=== PATIENT | female | born 1955 | race Caucasian/White ===

== ENCOUNTER 2018-04-07 19:57 | Emergency (ER) | payer MEDICAID, OTHER | END 2018-04-07 21:24 | disposition home or self-care (01) | LOC: FTE 19:57 | DX: B02.9 Zoster without complications (principal) | CPT/HCPCS: 99284; Z7502 ==

== ENCOUNTER 2018-04-09 17:47 | Inpatient (IN) | payer MEDICAID ==
[2018-04-09] MEDS: SODIUM CHLORIDE 0.9% 1L BAG IV* (18:54)
[2018-04-09 19:02] LABS: ADD MAN DIFF? NO
[2018-04-09 19:05] LABS: WHITE BLOOD COUNT 6.8 10^3/ul (4.8-10.8)
[2018-04-09 19:05] LABS: BASOPHILS % 0.4 % (0.0-2.0); EOSINOPHILS # 0.1 10^3/ul (0.0-0.5); HEMOGLOBIN 14.7 g/dl (12.0-16.0); LYMPHOCYTES # 1.2 10^3/ul (0.8-2.9); LYMPHOCYTES % 17.1 % (15.0-51.0); MEAN CORPUSCULAR HEMOGLOBIN 31.1 pg (29.0-33.0); MEAN CORPUSCULAR HGB CONC 33.4 g/dl (32.0-37.0); MEAN PLATELET VOLUME 11.1 fl (7.4-10.4); MONOCYTE # 0.5 10^3/ul (0.3-0.9); MONOCYTES % 7.9 % (0.0-11.0); NEUTROPHILS % 73.3 % (39.0-77.0); PLATELET COUNT 201 10^3/UL (140-415); RED BLOOD COUNT 4.73 10^6/ul (4.20-5.40); RED CELL DISTRIBUTION WIDTH 12.4 % (11.5-14.5)
[2018-04-09 19:24] LABS: INR 0.95; PROTIME 12.8 Sec (11.9-14.9)
[2018-04-09 19:25] LABS: PARTIAL THROMBOPLASTIN TIME 25.6 Sec (25.0-35.0)
[2018-04-09 19:26] LABS: ALANINE AMINOTRANSFERASE 31 IU/L (13-69); ALBUMIN 4.7 g/dl (3.3-4.9); ALBUMIN/GLOBULIN RATIO 1.23; ALKALINE PHOSPHATASE 71 IU/L (42-121); ANION GAP 14 (8-16); ASPARTATE AMINO TRANSFERASE 23 IU/L (15-46); BLOOD UREA NITROGEN 13 mg/dl (7-20); CALCIUM 9.1 mg/dl (8.4-10.2); CARBON DIOXIDE 29 mmol/L (21-31); CHLORIDE 102 mmol/L (97-110); CREATININE 0.63 mg/dl (0.44-1.00); GLUCOSE 109 mg/dl (70-220); SODIUM 141 mmol/L (135-144); TOTAL PROTEIN 8.5 g/dl (6.1-8.1)
[2018-04-09 19:28] LABS: LACTIC ACID 1.4 mmol/L (0.5-2.0)
[2018-04-09 19:32] LABS: ETHANOL < 10.0 mg/dl
[2018-04-09 19:43] LABS: TROPONIN-I < 0.010 ng/ml (0.000-0.120)
[2018-04-09 21:15] LABS: ADD UMIC YES; UR ASCORBIC ACID NEGATIVE (NEGATIVE); UR BACTERIA FEW /HPF (NONE SEEN); UR BILIRUBIN (Dip) NEGATIVE (NEGATIVE); UR BLOOD (Dip) NEGATIVE (NEGATIVE); UR CLARITY CLEAR (CLEAR); UR COLOR YELLOW (YELLOW); UR GLUCOSE (Dip) NEGATIVE (NEGATIVE); UR KETONES (Dip) 1+ mg/dL (NEGATIVE); UR LEUKOCYTE ESTERASE (Dip) 3+ Leu/ul (NEGATIVE); UR NITRITE (Dip) NEGATIVE (NEGATIVE); UR RBC 3 /HPF (0-5); UR SPECIFIC GRAVITY (Dip) 1.009 (1.003-1.030); UR SQUAMOUS EPITHELIAL CELL FEW /HPF (FEW); UR TOTAL PROTEIN (Dip) NEGATIVE (NEGATIVE); UR UROBILINOGEN (Dip) NEGATIVE (NEGATIVE); UR WBC 12 /HPF (0-5)
[2018-04-09 21:31] LABS: LACTIC ACID 1.4 mmol/L (0.5-2.0)
[2018-04-09] MEDS ORDERED: ONDANSETRON 4 MG INJ IV (22:00)
[2018-04-09] MEDS: CEFTRIAXONE 1 GM/50 ML (PMX) 50 ML IVPB (22:02)
[2018-04-09] MEDS: ACETAMINOPHEN 325 MG TAB PO (22:05)
[2018-04-09 22:32] LABS: AMPHETAMINE/METHAMPHETAMINE NEGATIVE (NEGATIVE); BARBITURATES NEGATIVE (NEGATIVE); BENZODIAZEPINES NEGATIVE (NEGATIVE); CANNABINOIDS NEGATIVE (NEGATIVE); COCAINE NEGATIVE (NEGATIVE); OPIATES NEGATIVE (NEGATIVE)
[2018-04-09 23:10] LABS: LACTIC ACID 0.9 mmol/L (0.5-2.0)
[2018-04-10] MEDS ORDERED: DOCUSATE SODIUM 100 MG CAP PO
[2018-04-10] MEDS ORDERED: BISACODYL (EC) 5 MG TAB PO
[2018-04-10] MEDS ORDERED: NACL 0.9% 3 ML SYG IV
[2018-04-10] MEDS: SOD CHLORIDE 0.9% 1,000 ML IV (00:05)
[2018-04-10] MEDS: VALACYCLOVIR 500 MG TAB PO ×2 (05:00→08:50)
[2018-04-10 06:04] LABS: ADD MAN DIFF? NO
[2018-04-10 06:06] LABS: WHITE BLOOD COUNT 6.1 10^3/ul (4.8-10.8)
[2018-04-10 06:06] LABS: BASOPHILS % 0.3 % (0.0-2.0); EOSINOPHILS # 0.2 10^3/ul (0.0-0.5); EOSINOPHILS % 3.7 % (0.0-7.0); HEMOGLOBIN 13.2 g/dl (12.0-16.0); LYMPHOCYTES # 1.6 10^3/ul (0.8-2.9); LYMPHOCYTES % 26.4 % (15.0-51.0); MEAN CORPUSCULAR HEMOGLOBIN 31.7 pg (29.0-33.0); MEAN CORPUSCULAR HGB CONC 33.8 g/dl (32.0-37.0); MEAN CORPUSCULAR VOLUME 93.5 fl (82.0-101.0); MEAN PLATELET VOLUME 11.4 fl (7.4-10.4); MONOCYTE # 0.6 10^3/ul (0.3-0.9); MONOCYTES % 10.1 % (0.0-11.0); NEUTROPHIL # 3.6 10^3/ul (1.6-7.5); NEUTROPHILS % 59.2 % (39.0-77.0); PLATELET COUNT 173 10^3/UL (140-415); RED BLOOD COUNT 4.17 10^6/ul (4.20-5.40); RED CELL DISTRIBUTION WIDTH 12.4 % (11.5-14.5)
[2018-04-10 06:25] LABS: ALANINE AMINOTRANSFERASE 27 IU/L (13-69); ALBUMIN 3.6 g/dl (3.3-4.9); ALBUMIN/GLOBULIN RATIO 1.24; ALKALINE PHOSPHATASE 55 IU/L (42-121); ANION GAP 11 (8-16); ASPARTATE AMINO TRANSFERASE 17 IU/L (15-46); BILIRUBIN,INDIRECT 0.6 mg/dl (0-1.1); BILIRUBIN,TOTAL 0.6 mg/dl (0.2-1.3); BLOOD UREA NITROGEN 11 mg/dl (7-20); CALCIUM 8.5 mg/dl (8.4-10.2); CARBON DIOXIDE 25 mmol/L (21-31); CHLORIDE 109 mmol/L (97-110); CHOL/HDL RATIO 5.6 RATIO; CHOLESTEROL 233 mg/dl (100-200); CREATININE 0.54 mg/dl (0.44-1.00); GLUCOSE 94 mg/dl (70-220); HDL CHOLESTEROL 41 mg/dl (35-98); LDL CHOLESTEROL,CALCULATED 164 mg/dl; MAGNESIUM 2.3 mg/dl (1.7-2.5); POTASSIUM 3.9 mmol/L (3.5-5.1); SODIUM 141 mmol/L (135-144); TOTAL PROTEIN 6.5 g/dl (6.1-8.1); TRIGLYCERIDES 139 mg/dl (0-149)
[2018-04-10] MEDS: LEVOTHYROXINE 75 MCG TAB PO (06:36)
[2018-04-10 06:39] LABS: HEMOGLOBIN A1C 5.8 % (0-5.9)
[2018-04-10 06:39] LABS: FREE THYROXINE INDEX (Calc) 2.62 ug/ml (0.65-3.89)
[2018-04-10 06:53] LABS: T3 UPTAKE 32.4 % (23.5-40.5); T4 (THYROXINE) 8.1 ug/dl (5.5-11.0)
[2018-04-10] MEDS: GABAPENTIN 100 MG CAP PO ×3 (08:49→20:31)
[2018-04-10] MEDS: SOD CHLORIDE 0.9% IVPB ×2 (13:50→21:19)
[2018-04-10] MEDS: ACYCLOVIR IVPB ×2 (13:50→21:19)
[2018-04-10] MEDS ORDERED: LIDOCAINE 1% (MDV) 10 ML INJ (15:42)
[2018-04-10] MEDS: ACETAMINOPHEN 325 MG TAB PO (17:32)
[2018-04-10 18:24] LABS: TOTAL PROTEIN,CSF 108 mg/dl (12-60)
[2018-04-10 18:24] LABS: GLUCOSE,CSF 53 mg/dl (50-80)
[2018-04-10 18:27] LABS: CSF RBC 0 /uL (0-0)
[2018-04-10 18:29] LABS: CSF RBC 0 /uL (0-0)
[2018-04-10 19:16] LABS: CSF CLARITY CLEAR; CSF WBC 139 /cmm (0-10)
[2018-04-10 19:16] LABS: CSF COLOR COLORLESS
[2018-04-10 19:17] LABS: CSF#TUBE COUNT TUBE#1; CSF#TUBES REC'D 4
[2018-04-10 19:19] LABS: CSF CLARITY CLEAR; CSF COLOR COLORLESS; CSF WBC 110 /cmm (0-10); CSF#TUBE COUNT TUBE#4; CSF#TUBES REC'D 4
[2018-04-10] MEDS: CEFTRIAXONE 1 GM/50 ML (PMX) 50 ML IVPB (20:31)
[2018-04-11] MEDS: ACYCLOVIR IVPB ×3 (05:45→21:31)
[2018-04-11] MEDS: SOD CHLORIDE 0.9% IVPB ×3 (05:45→21:31)
[2018-04-11 06:17] LABS: ADD MAN DIFF? NO
[2018-04-11 06:28] LABS: BASOPHILS % 0.7 % (0.0-2.0); EOSINOPHILS # 0.4 10^3/ul (0.0-0.5); EOSINOPHILS % 6.3 % (0.0-7.0); HEMATOCRIT 38.9 % (37.0-47.0); HEMOGLOBIN 13.2 g/dl (12.0-16.0); LYMPHOCYTES % 31.9 % (15.0-51.0); MEAN CORPUSCULAR HEMOGLOBIN 31.4 pg (29.0-33.0); MEAN CORPUSCULAR HGB CONC 33.9 g/dl (32.0-37.0); MEAN CORPUSCULAR VOLUME 92.6 fl (82.0-101.0); MEAN PLATELET VOLUME 11.8 fl (7.4-10.4); MONOCYTE # 0.6 10^3/ul (0.3-0.9); MONOCYTES % 10.2 % (0.0-11.0); NEUTROPHIL # 3.1 10^3/ul (1.6-7.5); NEUTROPHILS % 50.9 % (39.0-77.0); PLATELET COUNT 201 10^3/UL (140-415); RED CELL DISTRIBUTION WIDTH 12.5 % (11.5-14.5)
[2018-04-11 06:28] LABS: WHITE BLOOD COUNT 6.2 10^3/ul (4.8-10.8)
[2018-04-11] MEDS: LEVOTHYROXINE 75 MCG TAB PO (06:32)
[2018-04-11 06:49] LABS: ALANINE AMINOTRANSFERASE 27 IU/L (13-69); ALBUMIN 3.7 g/dl (3.3-4.9); ALBUMIN/GLOBULIN RATIO 1.12; ALKALINE PHOSPHATASE 51 IU/L (42-121); ANION GAP 10 (8-16); ASPARTATE AMINO TRANSFERASE 18 IU/L (15-46); BILIRUBIN,INDIRECT 0.5 mg/dl (0-1.1); BILIRUBIN,TOTAL 0.5 mg/dl (0.2-1.3); BLOOD UREA NITROGEN 12 mg/dl (7-20); CALCIUM 8.7 mg/dl (8.4-10.2); CARBON DIOXIDE 27 mmol/L (21-31); CHLORIDE 109 mmol/L (97-110); CREATININE 0.67 mg/dl (0.44-1.00); GLUCOSE 97 mg/dl (70-220); POTASSIUM 3.8 mmol/L (3.5-5.1); SODIUM 142 mmol/L (135-144)
[2018-04-11] MEDS: GABAPENTIN 100 MG CAP PO ×3 (08:31→21:31)
[2018-04-11] MEDS: ACETAMINOPHEN 325 MG TAB PO (08:38)
[2018-04-11] MEDS: IBUPROFEN 400 MG TAB PO ×2 (11:54→18:06)
[2018-04-11] MEDS: ONDANSETRON 4 MG INJ IV ×2 (12:29→20:01)
[2018-04-11] MEDS: NEOMYC/POLYMYX/BACIT 30 GM OINT TOP (12:30)
[2018-04-11] MEDS ORDERED: DIPHENHYDRAMINE 50 MG INJ IV (20:00)
[2018-04-11] MEDS ORDERED: morphine 2 MG INJ IV (23:00)
[2018-04-11] MEDS: METOCLOPRAMIDE 10 MG INJ IV (23:11)
[2018-04-12] MEDS ORDERED: METOCLOPRAMIDE 10 MG INJ IV
[2018-04-12] MEDS: IBUPROFEN 400 MG TAB PO ×2 (02:30→09:54)
[2018-04-12] MEDS: SOD CHLORIDE 0.9% IVPB (06:10)
[2018-04-12] MEDS: ACYCLOVIR IVPB (06:10)
[2018-04-12] MEDS: LEVOTHYROXINE 75 MCG TAB PO (06:15)
[2018-04-12] MEDS ORDERED: KETOROLAC 30 MG INJ IV (07:00)
[2018-04-12 09:17] LABS: ADD MAN DIFF? NO
[2018-04-12 09:24] LABS: BASOPHILS % 0.4 % (0.0-2.0); EOSINOPHILS # 0.2 10^3/ul (0.0-0.5); EOSINOPHILS % 1.8 % (0.0-7.0); HEMATOCRIT 37.2 % (37.0-47.0); HEMOGLOBIN 12.8 g/dl (12.0-16.0); LYMPHOCYTES # 1.3 10^3/ul (0.8-2.9); LYMPHOCYTES % 15.2 % (15.0-51.0); MEAN CORPUSCULAR HEMOGLOBIN 31.8 pg (29.0-33.0); MEAN CORPUSCULAR HGB CONC 34.4 g/dl (32.0-37.0); MEAN CORPUSCULAR VOLUME 92.3 fl (82.0-101.0); MEAN PLATELET VOLUME 11.5 fl (7.4-10.4); MONOCYTE # 0.9 10^3/ul (0.3-0.9); MONOCYTES % 10.4 % (0.0-11.0); NEUTROPHIL # 6.2 10^3/ul (1.6-7.5); PLATELET COUNT 204 10^3/UL (140-415); RED BLOOD COUNT 4.03 10^6/ul (4.20-5.40); RED CELL DISTRIBUTION WIDTH 12.6 % (11.5-14.5)
[2018-04-12 09:24] LABS: WHITE BLOOD COUNT 8.6 10^3/ul (4.8-10.8)
[2018-04-12 09:40] LABS: ANION GAP 11 (8-16); BLOOD UREA NITROGEN 20 mg/dl (7-20); CALCIUM 8.8 mg/dl (8.4-10.2); CARBON DIOXIDE 27 mmol/L (21-31); CHLORIDE 108 mmol/L (97-110); CREATININE 1.77 mg/dl (0.44-1.00); GLUCOSE 148 mg/dl (70-220); POTASSIUM 3.8 mmol/L (3.5-5.1); SODIUM 142 mmol/L (135-144)
[2018-04-12] MEDS: GABAPENTIN 100 MG CAP PO (09:54)
[2018-04-12] MEDS: NEOMYC/POLYMYX/BACIT 30 GM OINT TOP (11:31)
[2018-04-12] MEDS: DEXAMETHASONE 4 MG/ML 1 ML INJ IV ×2 (11:32→21:36)
[2018-04-12] MEDS: SOD CHLORIDE 0.9% 1,000 ML IV (11:32)
[2018-04-12] MEDS: METOCLOPRAMIDE 10 MG INJ IV (19:06)
[2018-04-12] MEDS: ONDANSETRON 4 MG INJ IV (23:31)
[2018-04-13] MEDS: DEXAMETHASONE 4 MG/ML 1 ML INJ IV (06:12)
[2018-04-13] MEDS: LEVOTHYROXINE 75 MCG TAB PO (06:12)
[2018-04-13] MEDS: NEOMYC/POLYMYX/BACIT 30 GM OINT TOP (09:00)
[2018-04-13] MEDS: METOCLOPRAMIDE 10 MG INJ IV ×2 (09:03→16:24)
[2018-04-13 11:44] LABS: ADD MAN DIFF? NO
[2018-04-13 11:47] LABS: BASOPHILS % 0.1 % (0.0-2.0); HEMOGLOBIN 13.4 g/dl (12.0-16.0); LYMPHOCYTES # 1.1 10^3/ul (0.8-2.9); LYMPHOCYTES % 11.8 % (15.0-51.0); MEAN CORPUSCULAR HEMOGLOBIN 31.7 pg (29.0-33.0); MEAN CORPUSCULAR HGB CONC 34.4 g/dl (32.0-37.0); MEAN CORPUSCULAR VOLUME 92.2 fl (82.0-101.0); MEAN PLATELET VOLUME 12.3 fl (7.4-10.4); MONOCYTE # 0.3 10^3/ul (0.3-0.9); NEUTROPHIL # 7.5 10^3/ul (1.6-7.5); NEUTROPHILS % 84.7 % (39.0-77.0); PLATELET COUNT 225 10^3/UL (140-415); RED BLOOD COUNT 4.23 10^6/ul (4.20-5.40); RED CELL DISTRIBUTION WIDTH 12.4 % (11.5-14.5)
[2018-04-13 11:47] LABS: WHITE BLOOD COUNT 8.9 10^3/ul (4.8-10.8)
[2018-04-13] MEDS: morphine LIQ (10 MG/5 ML) CUP PO (12:02)
[2018-04-13] MEDS: ONDANSETRON 4 MG INJ IV ×2 (12:03→21:19)
[2018-04-13 12:14] LABS: ANION GAP 12 (8-16); BLOOD UREA NITROGEN 27 mg/dl (7-20); CARBON DIOXIDE 26 mmol/L (21-31); CHLORIDE 108 mmol/L (97-110); CREATININE 1.85 mg/dl (0.44-1.00); GLUCOSE 141 mg/dl (70-220); POTASSIUM 4.3 mmol/L (3.5-5.1); SODIUM 142 mmol/L (135-144)
[2018-04-13] MEDS: ACYCLOVIR 500 MG in SOD CHLORIDE 0.9% 100 ML IVPB (13:51)
[2018-04-13] MEDS: CAFFEINE 200 MG TABLET PO (13:51)
[2018-04-14 00:41] LABS: VDRL, CSF NON-REACTIVE
[2018-04-14] MEDS: METOCLOPRAMIDE 10 MG INJ IV ×2 (01:52→14:24)
[2018-04-14] MEDS: LEVOTHYROXINE 75 MCG TAB PO (09:37)
[2018-04-14] MEDS: ACYCLOVIR 500 MG in SOD CHLORIDE 0.9% 100 ML IVPB (09:37)
[2018-04-14 10:36] LABS: ADD MAN DIFF? NO
[2018-04-14 10:40] LABS: WHITE BLOOD COUNT 10.8 10^3/ul (4.8-10.8)
[2018-04-14 10:40] LABS: BASOPHILS % 0.3 % (0.0-2.0); EOSINOPHILS % 0.2 % (0.0-7.0); HEMATOCRIT 36.8 % (37.0-47.0); HEMOGLOBIN 12.6 g/dl (12.0-16.0); LYMPHOCYTES # 2.6 10^3/ul (0.8-2.9); LYMPHOCYTES % 23.7 % (15.0-51.0); MEAN CORPUSCULAR HEMOGLOBIN 31.4 pg (29.0-33.0); MEAN CORPUSCULAR HGB CONC 34.2 g/dl (32.0-37.0); MEAN CORPUSCULAR VOLUME 91.8 fl (82.0-101.0); MEAN PLATELET VOLUME 12.1 fl (7.4-10.4); MONOCYTE # 0.8 10^3/ul (0.3-0.9); MONOCYTES % 7.7 % (0.0-11.0); NEUTROPHIL # 7.4 10^3/ul (1.6-7.5); NEUTROPHILS % 67.7 % (39.0-77.0); PLATELET COUNT 233 10^3/UL (140-415); RED BLOOD COUNT 4.01 10^6/ul (4.20-5.40); RED CELL DISTRIBUTION WIDTH 12.7 % (11.5-14.5)
[2018-04-14 11:01] LABS: ANION GAP 9 (8-16); BLOOD UREA NITROGEN 33 mg/dl (7-20); CALCIUM 9.1 mg/dl (8.4-10.2); CHLORIDE 108 mmol/L (97-110); CREATININE 1.51 mg/dl (0.44-1.00); GLUCOSE 117 mg/dl (70-220); POTASSIUM 3.4 mmol/L (3.5-5.1); SODIUM 141 mmol/L (135-144)
[2018-04-14 11:24] LABS: CARBON DIOXIDE 27 mmol/L (21-31)
[2018-04-14] MEDS: SOD CHLORIDE 0.9% 1,000 ML IV (11:39)
[2018-04-14] MEDS: POTASSIUM CHLORIDE (SR) 20 MEQ TAB PO (14:17)
== END 2018-04-14 18:15 | disposition home or self-care (01) | DRG 75 ==
LOC: E/R 17:47 → MS2 21:38
PROC: 009U3ZX Drainage of Spinal Canal, Percutaneous Approach, Diagnostic (ICD-10-PCS; principal; 2018-04-10)
PROC: B01BYZZ Fluoroscopy of Spinal Cord using Other Contrast (ICD-10-PCS; 2018-04-10)
DX: A87.8 Other viral meningitis (principal); G93.40 Encephalopathy, unspecified; B02.0 Zoster encephalitis; N17.9 Acute kidney failure, unspecified; T39.395A Adverse effect of other nonsteroidal anti-inflammatory drugs [NSAID], initial encounter; E03.9 Hypothyroidism, unspecified; E78.5 Hyperlipidemia, unspecified
CPT/HCPCS: 36415; 70450; 71045; 80048; 80053; 80061; 80307; 81001; 82945; 83036; 83605; 83735; 84157; 84436; 84443; 84479; 84484; 85025; 85610; 85730; 86592; 86788; 86789; 87040; 87070; 87086; 89051; 93005; 96374; 97161; 99285-25